=== PATIENT | female | born 1985 | race Caucasian/White ===

== ENCOUNTER 2017-04-26 14:14 | Emergency (ER) | payer OTHER ==
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
[2017-04-26 16:12] VITALS: BP 127/73
== END 2017-04-26 16:14 | disposition home or self-care (01) ==
LOC: ED 14:14
DX: S39.012A Strain of muscle, fascia and tendon of lower back, initial encounter (principal); V89.2XXA Person injured in unspecified motor-vehicle accident, traffic, initial encounter; R03.0 Elevated blood-pressure reading, without diagnosis of hypertension
CPT/HCPCS: 1040M; 99283